=== PATIENT | male | born 1970 | race Two or more races ===

== ENCOUNTER 2019-11-25 01:14 | Emergency (ER) | payer BC ==
[~2019-11-25] VITALS: Ht 175.3 cm; Wt 86.0 kg
[~2019-11-25 01:14] MED LIST: VANC250C12 PO
[2019-11-25] MEDS ORDERED: SODIUM CHLORIDE FLUSH 10ML SYR IVF ONE (02:00)
[2019-11-25] MEDS ORDERED: SODIUM CHLORIDE 0.9% 1,000ML IVBOLUS ONE (02:00)
[2019-11-25] MEDS ORDERED: ONDANSETRON 2MG/ML, 2ML IVPush ONE (02:00)
[2019-11-25 02:07] LABS: BASOPHILS # (AUTO) 0.07 x10^3/uL (0-0.1); BASOPHILS % (AUTO) 1 % (0-1); EOSINOPHILS # (AUTO) 0.03 x10^3/uL (0-0.4); EOSINOPHILS % (AUTO) 0 % (1-7); LYMPHOCYTES # (AUTO) 1.72 x10^3/uL (1-3.4); LYMPHOCYTES % (AUTO) 23 % (22-44); MD NO; MEAN CORPUSCULAR HEMOGLOBIN 31.7 pg (27.5-34.5); MEAN CORPUSCULAR VOLUME 96.1 fL (81-97); MEAN PLATELET VOLUME 6.8 fL (7.4-10.4); MONOCYTES # (AUTO) 0.62 x10^3/uL (0.2-0.8); MONOCYTES % (AUTO) 8 % (2-9); NEUTROPHILS # (AUTO) 4.98 x10^3/uL (1.8-6.8); NEUTROPHILS % (AUTO) 67 % (42-75); PLATELET COUNT 566 x10^3/uL (130-400); RED BLOOD COUNT 3.87 x10^6/uL (4.38-5.82); RED CELL DISTRIBUTION WIDTH 13.8 % (9.4-14.8)
[2019-11-25] MEDS ORDERED: ONDANSETRON 2MG/ML, 2ML ONE (02:11)
[2019-11-25] MEDS ORDERED: MORPHINE SULFATE 4 MG/ML, 1ML ONE ×2 (02:11→03:54)
[2019-11-25] MEDS: MORPHINE SULFATE 4 MG/ML, 1ML IVPush PRN ×2 (02:18→04:30)
[2019-11-25 02:19] LABS: ALANINE AMINOTRANSFERASE 25 U/L (12-78); ALBUMIN 3.6 g/dL (3.4-5.0); ANION GAP 7 mmol/L (5-15); CALCIUM 8.7 mg/dL (8.5-10.1); CHLORIDE 105 mmol/L (98-107); CREATININE 0.93 mg/dL (0.7-1.3)
[2019-11-25 02:22] LABS: ALKALINE PHOSPHATASE 65 U/L (45-117); BILIRUBIN,TOTAL 0.6 mg/dL (0.2-1.0); TOTAL PROTEIN 7.9 g/dL (6.4-8.2)
--- NOTE | 2019-11-25 02:48 | NUR ---
BEDSIDE CAMMODE PROVIDED TO PT. HE STATES HE IS UNABLE TO PROVIDE URINE OR STOOL SAMPLE AT THIS TIME
--- NOTE | 2019-11-25 02:56 | NUR ---
PT TO CT
--- NOTE | 2019-11-25 03:19 | NUR ---
PT REPORT NO PAIN RELIEF FROM MORPHINE.
[2019-11-25 04:29] VITALS: BP 147/97
[2019-11-25 04:45] LABS: MICROSCOPIC NOT IND
[2019-11-25 04:48] LABS: CULTURE INDICATED? NO
--- NOTE | 2019-11-25 04:52 | NUR ---
PT MEDICATED WITH MORPHINE FOR A SECOND TIME. URINE SENT TO LAB. PT STILL UNABLE TO PROVIDE STOOL SAMPLE. JUDE GARRETT STILL IN ROOM
--- NOTE | 2019-11-25 05:23 | NUR ---
PT DISCHARGED WITH WOUND SUPPLIES AND A CLEAN DRESSING CHANGE.
[2019-11-25] MEDS ORDERED: OMNIPAQUE 350 MG/ML, 100ML BOTTLE ONE (06:47)
== END 2019-11-25 05:24 | disposition home or self-care (01) ==
LOC: ED 02:22
DX: R10.32 Left lower quadrant pain (principal); R11.0 Nausea; R19.7 Diarrhea, unspecified; R00.0 Tachycardia, unspecified; I50.9 Heart failure, unspecified
CPT/HCPCS: 36415; 74177; 80053; 81003; 83690; 85025; 96361; 96374; 96375; 96376; 99284; J2270; J2405; J7030; Q9967

== ENCOUNTER 2019-12-06 07:33 | Emergency (ER) | payer BC, MEDICAID ==
[~2019-12-06] VITALS: Ht 175.3 cm; Wt 83.8 kg
--- NOTE | 2019-12-06 07:37 | NUR ---
NIL X [id number]
--- NOTE | 2019-12-06 07:56 | NUR ---
PATIENT BROUGHT BACK FROM TRIAGE WITH CHIEF COMPLAINT OF SORE THROAT FOR A "FEW" DAYS. NO OTHER SYMPTOMS REPORTED.
[2019-12-06 07:59] VITALS: BP 106/66
[2019-12-06] MEDS ORDERED: HYDROcodone/APAP 7.5-325MG/15ML UDC ONE (08:11)
[2019-12-06] MEDS ORDERED: HYDROcodone/APAP 7.5-325MG/15ML UDC PO ONE (09:00)
--- NOTE | 2019-12-06 09:11 | NUR ---
PATIENT REQUESTING MORE LORTAB ELIXER AND STATES HIS PAIN IS 8/10. NOTIFIED FRANKIE ATKINSON. PATIENT TO BE DISCHARGED.
--- NOTE | 2019-12-06 09:20 | NUR ---
Patient given discharge instructions and they have confirmed that they understand the instructions. Patient ambulatory with steady gait.
== END 2019-12-06 09:21 | disposition home or self-care (01) ==
LOC: ED 09:12
DX: J02.8 Acute pharyngitis due to other specified organisms (principal); B97.89 Other viral agents as the cause of diseases classified elsewhere; I95.9 Hypotension, unspecified; I50.9 Heart failure, unspecified; E83.51 Hypocalcemia
CPT/HCPCS: 87081; 87880; 99283

== ENCOUNTER 2020-02-06 23:04 | Emergency (ER) | payer MEDICAID ==
[~2020-02-06] VITALS: Ht 175.3 cm; Wt 81.8 kg
[2020-02-06 23:08] VITALS: BP 124/94
--- NOTE | 2020-02-07 00:16 | NUR ---
[id number]
--- NOTE | 2020-02-07 00:28 | NUR ---
NILX2
--- NOTE | 2020-02-07 00:30 | NUR ---
NILX3
== END 2020-02-07 00:32 | disposition left against medical advice (07) ==
LOC: ED 02-07
DX: R10.9 Unspecified abdominal pain (principal); R00.0 Tachycardia, unspecified
CPT/HCPCS: 93005; 99283

== ENCOUNTER 2020-03-21 19:32 | Emergency (ER) | payer MEDICAID ==
[~2020-03-21] VITALS: Ht 175.3 cm; Wt 86.4 kg
[2020-03-21 19:40] VITALS: BP 107/73
--- NOTE | 2020-03-21 20:23 | NUR ---
PT TO ROOM FROM LOBBY AT THIS TIME.
[2020-03-21] MEDS ORDERED: SIMV20TA19 PO (20:35)
[2020-03-21] MEDS ORDERED: LISI5TAB7 PO (20:36)
[2020-03-21] MEDS ORDERED: DIPH,PERTUSS(ACELL),TET VAC/PF 0.5 ML IM-VACC ONE ×2 (21:00→21:08)
[2020-03-21] MEDS ORDERED: HYDROcodone/APAP 5/325 TABLET PO ONE (21:00)
[2020-03-21] MEDS ORDERED: HYDROcodone/APAP 5/325 TABLET ONE (21:08)
--- NOTE | 2020-03-21 21:54 | NUR ---
PATIENT LEFT WITHOUT D/C PAPERS OR INSTRUCTIONS
== END 2020-03-21 22:01 | disposition home or self-care (01) ==
LOC: ED 21:01
DX: S39.012A Strain of muscle, fascia and tendon of lower back, initial encounter (principal); S91.012A Laceration without foreign body, left ankle, initial encounter; I50.9 Heart failure, unspecified; X58.XXXA Exposure to other specified factors, initial encounter; Y93.89 Activity, other specified; Y92.89 Other specified places as the place of occurrence of the external cause; Y99.8 Other external cause status
CPT/HCPCS: 90471; 90715; 99283

== ENCOUNTER 2020-04-06 00:52 | Emergency (ER) | payer MEDICAID ==
[~2020-04-06] VITALS: Ht 175.3 cm; Wt 82.0 kg
[~2020-04-06 00:52] MED LIST changes: +LISI5TAB7 PO; +SIMV20TA19 PO
[2020-04-06] MEDS ORDERED: SODIUM CHLORIDE FLUSH 10ML SYR IVF ONE (01:00)
[2020-04-06] MEDS ORDERED: SODIUM CHLORIDE 0.9% 1,000ML IVBOLUS ONE (01:00)
[2020-04-06] MEDS ORDERED: LORazepam 2 MG/ML, 1ML IVPush ONE (01:00)
[2020-04-06] MEDS ORDERED: LORazepam 2 MG/ML, 1ML ONE (01:07)
[2020-04-06 01:22] LABS: BASOPHILS # (AUTO) 0.06 x10^3/uL (0-0.1); BASOPHILS % (AUTO) 1 % (0-1); EOSINOPHILS # (AUTO) 0.05 x10^3/uL (0-0.4); EOSINOPHILS % (AUTO) 1 % (1-7); LYMPHOCYTES % (AUTO) 26 % (22-44); MD NO; MEAN CORPUSCULAR HEMOGLOBIN 33.1 pg (27.5-34.5); MEAN CORPUSCULAR HGB CONC 33.4 g/dL (33.2-36.2); MEAN CORPUSCULAR VOLUME 99.1 fL (81-97); MEAN PLATELET VOLUME 7.2 fL (7.4-10.4); MONOCYTES # (AUTO) 0.38 x10^3/uL (0.2-0.8); MONOCYTES % (AUTO) 7 % (2-9); NEUTROPHILS % (AUTO) 66 % (42-75); PLATELET COUNT 367 x10^3/uL (130-400); RED BLOOD COUNT 3.89 x10^6/uL (4.38-5.82); RED CELL DISTRIBUTION WIDTH 13.7 % (9.4-14.8)
--- NOTE | 2020-04-06 01:22 | NUR ---
THIS IS A 50Y M BIB EMS FROM HOME. PT STS HE WAS RUNNING UP HIS STAIRS AND FELT SHORT OF BREATH. PT STS HE WAS COOKING AND FORGOT ABOUT THE FOOD AND ALMOST BURNED HIS HOT LINKS. PER PT HE HAS HAD A GIRISH TODAY AND LAST USED METH 2 DAYS AGO. AND MENTIONED HEROIN AND COOKIES. PT CONNECTED TO MONITORING VSS, NADN. FLUIDS INFUSING PT MEDICATED PER MAR
[2020-04-06 01:32] LABS: ALANINE AMINOTRANSFERASE 19 U/L (12-78); ALBUMIN 3.5 g/dL (3.4-5.0); ANION GAP 9 mmol/L (5-15); CALCIUM 8.6 mg/dL (8.5-10.1); CHLORIDE 110 mmol/L (98-107); T4 (THYROXINE) 7.9 mcg/dL (4.5-12.1)
[2020-04-06 01:37] LABS: ALKALINE PHOSPHATASE 59 U/L (45-117); BILIRUBIN,TOTAL 0.5 mg/dL (0.2-1.0); TOTAL PROTEIN 7.2 g/dL (6.4-8.2); TROPONIN I < 0.015 ng/mL (0.000-0.045)
--- NOTE | 2020-04-06 01:54 | NUR ---
PT EDUCATED ON NEED FOR URINE SAMPLE, PT STS HE CAN'T GO BECAUSE HE JUST WENT BEFORE HE GOT HERE.
[2020-04-06] MEDS ORDERED: ONDANSETRON ODT 4 MG PO ONE (02:00)
[2020-04-06 02:15] VITALS: BP 152/112
--- NOTE | 2020-04-06 02:19 | NUR ---
URINE SENT TO LAB AT THIS TIME
[2020-04-06 02:40] LABS: AMPHETAMINE SCREEN, URINE Positive (Negative); BARBITURATE SCREEN, URINE Negative (Negative); BENZODIAZEPINE SCREEN, URINE Negative (Negative); CANNABINOID SCREEN, URINE Negative (Negative); COCAINE SCREEN, URINE Negative (Negative); METHADONE SCREEN, URINE Negative (Negative); OPIATE SCREEN, URINE Negative (Negative)
== END 2020-04-06 03:12 | disposition home or self-care (01) ==
LOC: ED 02:28
DX: R42 Dizziness and giddiness (principal); R55 Syncope and collapse; I11.0 Hypertensive heart disease with heart failure; I50.9 Heart failure, unspecified; I44.4 Left anterior fascicular block; R00.0 Tachycardia, unspecified; F15.10 Other stimulant abuse, uncomplicated; F17.210 Nicotine dependence, cigarettes, uncomplicated; Z72.9 Problem related to lifestyle, unspecified
CPT/HCPCS: 36415; 71045; 80053; 80307; 83735; 84436; 84443; 84484; 85025; 93005; 96361; 96374; 99285; 99406; J2060; J7030